=== PATIENT | female | born 1965 | race American Indian/Alaskan Native ===

== ENCOUNTER 2019-07-27 12:39 | Emergency (ER) | payer OTHER ==
[2019-07-27] MEDS ORDERED: ASPIRIN 325 MG TAB PO ONE (12:51)
--- NOTE | 2019-07-27 13:32 | XRay Report ---
CHEST 1 VIEW INDICATION / CLINICAL INFORMATION: Chest Pain. COMPARISON: None available. FINDINGS: SUPPORT DEVICES: None. HEART / MEDIASTINUM: No significant abnormality. LUNGS / PLEURA: No significant pulmonary or pleural abnormality. No pneumothorax. IMPRESSION: 1. No acute finding. Signer Name: Carlitos Deluna MD Signed: 07/27/2019 1:28 PM Workstation Name: [id number]
[2019-07-27 14:53] LABS: Basophils # (Auto) 0.1 K/mm3 (0.0-0.1); Basophils % (Auto) 1.1 % (0.0-1.8); Eosinophils % (Auto) 0.7 % (0.0-4.3); Hematocrit 33.1 % (30.3-42.9); Hemoglobin 11.1 gm/dl (10.1-14.3); Lymphocytes # (Auto) 1.9 K/mm3 (1.2-5.4); Lymphocytes % (Auto) 29.3 % (13.4-35.0); Mean Corpuscular HGB Conc 34 % (30-34); Mean Corpuscular Volume 75 fl (79-97); Monocytes # (Auto) 0.8 K/mm3 (0.0-0.8); Monocytes % (Auto) 11.7 % (0.0-7.3); Platelet Count 249 K/mm3 (140-440); Red Blood Count 4.39 M/mm3 (3.65-5.03); Red Cell Distribution Width 15.1 % (13.2-15.2)
--- NOTE | 2019-07-27 14:53 | Emergency Department Report ---
ED Chest Pain HPI - General Chief Complaint: Chest Pain Stated Complaint: CHEST PAIN/SOB Time Seen by Provider: 07/27/19 14:45 Source: EMS Mode of arrival: Stretcher Limitations: No Limitations - History of Present Illness Initial Comments: Patient is 53 years old female with history of hypertension. Patient presented to the ER complaining of substernal chest pain, aching in nature with no radiation. Patient stated that she has been having cough, productive with greenish sputum. Patient also stated that she has been having chills. Patient denied any shortness of breath, nausea vomiting or diarrhea. MD Complaint: chest pain -: days(s) (2) Onset: during rest Pain Location: substernal Severity: mild Severity scale (0 -10): 3 Quality: aching Consistency: intermittent Other Symptoms: cough - Related Data Allergies Allergy/AdvReac Type Severity Reaction Status Date / Time No Known Allergies Allergy Verified 07/27/19 14:47 Heart Score - HEART Score History: Slightly suspicious EKG: Non-specific Age: 45-65 Risk factors: 1-2 risk factors Troponin: < normal limit HEART Score: 3 - Critical Actions Critical Actions: 0-3 pts:0.9-1.7%risk of adverse cardiac event.Candidate for discharge ED Review of Systems ROS: Stated complaint: CHEST PAIN/SOB Other details as noted in HPI Comment: All other systems reviewed and negative Constitutional: denies: chills, fever Respiratory: cough. denies: orthopnea, shortness of breath, SOB with exertion, SOB at rest, wheezing Cardiovascular: chest pain. denies: palpitations, dyspnea on exertion Gastrointestinal: denies: abdominal pain, nausea, vomiting, diarrhea, constipation, hematemesis, melena, hematochezia Musculoskeletal: denies: back pain Neurological: denies: headache, weakness, numbness, paresthesias, confusion, abnormal gait ED Past Medical Hx - Past Medical History Previous Medical History?: Yes Hx Hypertension: Yes Hx Renal Disease: Yes (stage III) - Surgical History Past Surgical History?: Yes Additional Surgical History: rotator cuff surgery - Social History Smoking Status: Never Smoker Substance Use Type: None ED Physical Exam - General Limitations: No Limitations General appearance: alert, in no apparent distress - Head Head exam: Present: atraumatic, normocephalic, normal inspection - Eye Eye exam: Present: normal appearance - ENT ENT exam: Present: normal exam, normal orophraynx, mucous membranes moist - Neck Neck exam: Present: normal inspection, full ROM. Absent: tenderness, meningismus, lymphadenopathy, thyromegaly - Respiratory Respiratory exam: Present: normal lung sounds bilaterally - Cardiovascular Cardiovascular Exam: Present: regular rate, normal rhythm, normal heart sounds - GI/Abdominal GI/Abdominal exam: Present: soft, normal bowel sounds. Absent: distended, tenderness, guarding, rebound, rigid, organomegaly, mass, bruit, pulsatile mass, hernia - Extremities Exam Extremities exam: Present: normal inspection, full ROM, normal capillary refill. Absent: tenderness, pedal edema, joint swelling, calf tenderness - Back Exam Back exam: Present: normal inspection, full ROM. Absent: tenderness, CVA tenderness (R), CVA tenderness (L), muscle spasm, paraspinal tenderness, vertebral tenderness - Neurological Exam Neurological exam: Present: alert, oriented X3, CN II-XII intact, normal gait, reflexes normal - Psychiatric Psychiatric exam: Present: normal mood - Skin Skin exam: Present: warm, intact, normal color ED Course Vital Signs 07/27/19 07/27/19 07/27/19 12:44 12:48 13:01 Temperature 98.6 F Pulse Rate 80 108 H 78 Respiratory 18 19 22 Rate Blood Pressure 133/53 O2 Sat by Pulse 99 100 Oximetry 07/27/19 07/27/19 07/27/19 13:31 14:00 14:31 Temperature Pulse Rate 77 80 82 Respiratory 20 13 18 Rate Blood Pressure 117/45 140/59 124/55 O2 Sat by Pulse 100 99 100 Oximetry 07/27/19 15:00 Temperature Pulse Rate 84 Respiratory 16 Rate Blood Pressure 129/59 O2 Sat by Pulse 98 Oximetry ED Medical Decision Making - Lab Data Result diagrams: 07/27/19 14:35 07/27/19 14:35 - EKG Data -: EKG Interpreted by Vt EKG shows normal: sinus rhythm Rate: normal - EKG Data Interpretation: no acute changes - Radiology Data Radiology results: report reviewed - Medical Decision Making Patient is 53 years old female with history of hypertension. Patient presented to the ER complaining of substernal chest pain, aching in nature with no radia tion. Patient stated that she has been having cough, productive with greenish sputum. Patient also stated that she has been having chills. Patient denied any shortness of breath, nausea vomiting or diarrhea. EKG showed no ST elevation or depression. Chest x-ray is unremarkable. Labs reviewed and is unremarkable including 2 sets of troponin. Patient advised to follow-up with her primary care physician for outpatient cardiac workup including stress test. Patient symptoms may be related to acute bronchitis given a cough which is productive for greenish sputum. Patient be treated with amoxicillin and given a prescription for Robitussin also for cough. Patient advised to return to the ER if symptoms are not improving. Critical care attestation.: If time is entered above; I have spent that time in minutes in the direct care of this critically ill patient, excluding procedure time. ED Disposition Clinical Impression: Chest pain, Acute bronchitis Disposition: - TO HOME OR SELFCARE Is pt being admited?: No Condition: Stable Instructions: Chest Pain (ED), Acute Bronchitis (ED) Referrals: [facility] [Provider Group] - 3-5 Days
[2019-07-27 15:02] VITALS: BP 129/59
[2019-07-27 15:12] LABS: BUN/Creatinine Ratio 22; Blood Urea Nitrogen 31 mg/dL (7-17); Calcium 9.6 mg/dL (8.4-10.2); Hemolysis Index 22
[2019-07-27 15:54] LABS: Alanine Aminotransferase 15 units/L (7-56); Albumin 3.4 g/dL (3.9-5)
[2019-07-27 16:34] LABS: Bilirubin,Direct < 0.2 mg/dL (0-0.2)
== END 2019-07-27 17:13 | disposition home or self-care (01) ==
LOC: ED 12:39
DX: J20.9 Acute bronchitis, unspecified (principal); I10 Essential (primary) hypertension; Z98.890 Other specified postprocedural states
CPT/HCPCS: 36415; 71045; 80048; 80076; 83690; 84484; 85025; 93005; 93010